=== PATIENT | female | born 1945 | race Two or more races ===

== ENCOUNTER 2018-07-12 05:13 | Inpatient (IN) | payer OTHER ==
[~2018-07-12] VITALS: Ht 157.5 cm; Wt 63.6 kg
[2018-07-12 05:23] VITALS: Ht 157.5 cm; Wt 63.6 kg
[2018-07-12 05:51] LABS: RED CELL DISTRIBUTION WIDTH 12.5 % (11.5-14.5)
[2018-07-12 05:52] LABS: PLATELET COUNT 125 x10^3mcL (130-400)
[2018-07-12 07:06] LABS: BAND NEUTROPHIL 4 % (0-10); MONOCYTE 3 % (0-7); SEGMENTED NEUTROPHILS 88 % (37-75); rbc morphology (normal/abnorm) NORMAL (NORMAL)
[2018-07-12 07:12] LABS: ALKALINE PHOSPHATASE 122 U/L (46-116); ALT/SGPT 22 U/L (14-59); AST/SGOT 15 U/L (15-37); BILIRUBIN TOTAL 1.01 mg/dL (0.20-1.00); CALCIUM 8.8 mg/dL (8.5-10.1); CARBON DIOXIDE 24.1 mmol/L (21-32); CHLORIDE SERUM 98 mmol/L (98-107); CREATININE SERUM 1.4 mg/dL (0.6-1.0); GLUCOSE SERUM 372 mg/dL (74-106); LIPASE 109 IU/L (73-393); SODIUM SERUM 137 mmol/L (136-145); TOTAL PROTEIN, SERUM 6.7 g/dL (6.4-8.2)
[2018-07-12 07:21] LABS: ALBUMIN 2.7 g/dL (3.4-5.0); POTASSIUM SERUM 2.7 mmol/L (3.5-5.1)
[2018-07-12 08:02] LABS: microscopic required? YES; urine erythrocyte 2+ (NEGATIVE)
[2018-07-12] MEDS ORDERED: METFORMIN500 M1 PO (08:03)
[2018-07-12 10:21] VITALS: BP 103/48
[2018-07-12 17:29] VITALS: BP 114/55
[2018-07-12 20:31] VITALS: BP 102/49
[2018-07-13 05:19] VITALS: BP 127/56
[2018-07-13 07:29] LABS: RED CELL DISTRIBUTION WIDTH 13.1 % (11.5-14.5)
[2018-07-13 07:43] LABS: PLATELET COUNT 102 x10^3mcL (130-400)
[2018-07-13 07:49] LABS: CALCIUM 8.1 mg/dL (8.5-10.1); CARBON DIOXIDE 21.9 mmol/L (21-32); CHLORIDE SERUM 106 mmol/L (98-107); CREATININE SERUM 1.1 mg/dL (0.6-1.0); GLUCOSE SERUM 156 mg/dL (74-106); POTASSIUM SERUM 3.4 mmol/L (3.5-5.1); SODIUM SERUM 140 mmol/L (136-145); TRIGLYCERIDES 84 mg/dL (<150)
[2018-07-13 07:50] LABS: CHOLESTEROL 76 mg/dL (<200); CHOLESTEROL/HDL RATIO 3.2; HDL CHOLESTEROL 24 mg/dL (40-60)
[2018-07-13 09:07] VITALS: BP 120/70
[2018-07-13 09:56] LABS: BAND NEUTROPHIL 18 % (0-10); BASOPHIL 0 % (0-2); METAMYELOCTE 1 % (0-2); MONOCYTE 5 % (0-7); MYELOCYTE 1 % (0-2); SEGMENTED NEUTROPHILS 70 % (37-75)
[2018-07-13 09:57] LABS: PLATELET MORPHOLOGY PLATELETS DECREASED; rbc morphology (normal/abnorm) NORMAL (NORMAL)
[2018-07-13 16:15] VITALS: BP 132/61
[2018-07-13 21:25] VITALS: BP 175/78
[2018-07-13 22:35] VITALS: BP 124/49
[2018-07-14 05:16] VITALS: BP 142/85
[2018-07-14 06:56] LABS: CALCIUM 8.3 mg/dL (8.5-10.1); CARBON DIOXIDE 21.9 mmol/L (21-32); CHLORIDE SERUM 105 mmol/L (98-107); CREATININE SERUM 0.9 mg/dL (0.6-1.0); GLUCOSE SERUM 135 mg/dL (74-106); POTASSIUM SERUM 3.5 mmol/L (3.5-5.1); SODIUM SERUM 137 mmol/L (136-145)
[2018-07-14 07:25] LABS: BASOPHIL % 0.1 % (0-2); PLATELET COUNT 113 x10^3mcL (130-400); RED CELL DISTRIBUTION WIDTH 12.8 % (11.5-14.5)
[2018-07-14 09:46] VITALS: BP 129/59
[2018-07-14 17:00] VITALS: BP 142/72
[2018-07-14 21:22] VITALS: BP 122/83
[2018-07-15 05:37] VITALS: BP 146/75
[2018-07-15 06:29] LABS: CALCIUM 8.4 mg/dL (8.5-10.1); CARBON DIOXIDE 26.1 mmol/L (21-32); CHLORIDE SERUM 108 mmol/L (98-107); CREATININE SERUM 0.8 mg/dL (0.6-1.0); GLUCOSE SERUM 133 mg/dL (74-106); SODIUM SERUM 141 mmol/L (136-145)
[2018-07-15 06:37] LABS: BASOPHIL % 0.2 % (0-2); PLATELET COUNT 126 x10^3mcL (130-400); RED CELL DISTRIBUTION WIDTH 13.3 % (11.5-14.5)
[2018-07-15 08:56] VITALS: BP 153/74
[2018-07-15 12:45] VITALS: BP 153/74
== END 2018-07-15 15:32 | disposition home or self-care (01) | DRG 871 ==
LOC: ED 05:13 → DU 09:07 → MU 09:07 → DU 09:38 → MU 17:08
PROVIDERS: Emergency Medicine; Internal Medicine Pulmonary Disease
DX: A41.9 Sepsis, unspecified organism (principal); N17.0 Acute kidney failure with tubular necrosis; N12 Tubulo-interstitial nephritis, not specified as acute or chronic; N39.0 Urinary tract infection, site not specified; E44.1 Mild protein-calorie malnutrition; N17.8 Other acute kidney failure; R65.20 Severe sepsis without septic shock; R19.7 Diarrhea, unspecified; E87.6 Hypokalemia; E11.65 Type 2 diabetes mellitus with hyperglycemia; I10 Essential (primary) hypertension; Z79.84 Long term (current) use of oral hypoglycemic drugs; Z79.899 Other long term (current) drug therapy
CPT/HCPCS: 36600; J0696; J2405; J3475; J3480; J7030; Q0162